=== PATIENT | male | born 1995 ===

== ENCOUNTER 2023-04-28 19:21 | Emergency (ER) | payer OTHER, SELFPAY ==
[2023-04-28 19:31] VITALS: BP 151/90; PULSE 95; RESP 16; TEMP 36.7; O2SAT 100; BMI 25.8
--- NOTE | 2023-04-28 20:32 | PC.NURSE ---
Mother exited room and approached nurses station stating that patient and her are wanting to leave. Mother asking if anything is required to just leave without seeing a doctor. Additional staff at nurses station explain to mother of patient that they may leave if they would like to. Mother appears agitated and stated multiple times, so I shouldn't see a bill since we didn't see a doctor? Patient then followed mother out of ED. This RN had not been in room to assess patient and did not partake in any of their care at time of LWBS.
== END 2023-04-28 20:33 | disposition left against medical advice (07) ==
PROVIDERS: Emergency Provider Emergency Medicine
DX: T40.715A Adverse effect of cannabis, initial encounter (principal)
CPT/HCPCS: 99281

== ENCOUNTER → 2023-09-28 13:37 | Outpatient (CLI) | payer OTHER, SELFPAY ==
[2023-09-28 15:45] LABS: Urine N gonorrhoeae NOT DETECTED
[2023-09-28 16:00] LABS: Urine Chlamydia NOT DETECTED
== END ==
PROVIDERS: Visit Provider Physician Assistant
DX: Z20.2 Contact with and (suspected) exposure to infections with a predominantly sexual mode of transmission (principal); R30.0 Dysuria
CPT/HCPCS: 87491; 87591